=== PATIENT | female | born 1955 | race Caucasian/White ===

== ENCOUNTER → 2018-03-01 | Outpatient (CLI) | payer OTHER ==
--- NOTE | 2018-03-01 11:16 | RAD ---
DATE: 03/01/2018 EXAM: DIGITAL SCREEN BILAT W/CAD HISTORY: Routine screening COMPARISON: 02/26/2017 This study was interpreted with the benefit of Computerized Aided Detection (CAD). Breast Density: SCATTERED The breast parenchyma shows scattered fibroglandular densities. Breast parenchyma level B. FINDINGS: No new or enlarging breast densities are seen. Minimal benign type calcification is present. No suspicious microcalcifications have developed. IMPRESSION: Stable mammograms without evidence of malignancy. BI-RADS CATEGORY: 2 BENIGN FINDING(S) RECOMMENDED FOLLOW-UP: 12M 12 MONTH FOLLOW-UP PQRS compliance statement: Patient information was entered into a reminder system with a target due date for the next mammogram. Mammography is a sensitive method for finding small breast cancers, but it does not detect them all and is not a substitute for careful clinical examination. A negative mammogram does not negate a clinically suspicious finding and should not result in delay in biopsying a clinically suspicious abnormality. "Our facility is accredited by the [employer] Mammography Program."
== END | disposition home or self-care (01) ==
LOC: MAMMO 08:10
PROVIDERS: ATTEND Family Medicine
DX: Z12.31 Encounter for screening mammogram for malignant neoplasm of breast (principal)
CPT/HCPCS: 77067

== ENCOUNTER → 2018-11-25 | Outpatient (CLI) | payer OTHER ==
--- NOTE | 2018-11-26 14:01 | SLEEP ---
DATE OF STUDY: 11/25/2018 ATTENDING PHYSICIAN: Eduarda Vickers MD The patient is 63 years old who weighs 135 pounds with a BMI of 24. The patient's [place] score was 11. The patient underwent split night study performed at [facility]. During the night study, the patient spent 414 minutes in bed and slept for 321 minutes with a sleep efficiency of 77%. Sleep latency was 51 minutes with a REM latency of 161 minutes. Overall, sleep architecture showed increased stage 1 sleep, normal stage 2 sleep, increased slow wave and normal REM sleep. During the initial diagnostic portion of the study, the patient slept for 171 minutes. During that time, the patient had 17 obstructive apneas, no mixed or central apnea and 43 hypopneas. The patient's apnea-hypopnea index was 21 per hour, supine index 22 per hour and REM index of 53 per hour. EKG monitoring revealed normal sinus rhythm, average heart rate 84 beats per minute, no sustained arrhythmias were observed. No PLMs were observed. Nocturnal oximetry study during the diagnostic portion revealed a mean oxygen saturation 93% with lowest of 69%. An 8% of time oxygen saturation remained between 80% and 89%. The patient met the criteria for CPAP initiation. It was started at 7 cm water, but she could not tolerate lower pressure due to shortness of breath as a result it was increased to 9 cm water. The patient slept at that pressure of 116 minutes the patient's supine as well as REM sleep. The patient's AHI was reduced to 1 per hour and oxygen saturation remained above 91%. The patient used small size nasal pillows. IMPRESSION: 1. Moderate sleep apnea-hypopnea syndrome with worsening during rapid eye movements sleep. Total apnea-hypopnea index 21 per hour with a rapid eye movements apnea-hypopnea index of 53 per hour. 2. Nocturnal hypoxia secondary to obstructive sleep apnea, but resolved with continuous positive airway pressure. 3. No periodic limbs movements seen. RECOMMENDATIONS: 1. CPAP at 9 cm water completely eliminated the patient's sleep apnea, should be used on a nightly basis. 2. Follow up in 4-6 weeks to assess compliance with CPAP and to document clinical improvement. 3. Avoid ENAMEL SPRAYER depressants. 4. Caution regarding driving until symptoms of sleep apnea resolve with the use of CPAP. ROSAMARIA LARSON MD DR: BUCK/cee JOB#: [id number] / [id number] EDUARDA Snow MD
== END | disposition home or self-care (01) ==
LOC: SLPLAB 19:12
PROVIDERS: ATTEND Family Medicine
DX: G47.33 Obstructive sleep apnea (adult) (pediatric) (principal); G47.34 Idiopathic sleep related nonobstructive alveolar hypoventilation
CPT/HCPCS: 95810

== ENCOUNTER → 2018-12-27 | Day surgery (SDC) | payer OTHER ==
[~2018-12-27] MED LIST: CRESTOR40 MG PO; HYDROmorphone 2 MG/ML VIAL IV PRN; LEVO125T PO; LIDOCAINE 2% PF 5 ML VIAL. ONE; LISI1TAB23 PO; MORPHINE SULFATE 2 MG/ML VIAL. IV PRN; MULT-55 PO; ONDANSETRON PF 4 MG/2 ML VIAL. IV PRN; PROCHLORPERAZINE 10 MG/2 ML VIAL. IV PRN; PROPOFOL 20 ML IV ONE; RANI150T2 PO; fentaNYL PF VIAL 100 MCG/2 ML VIAL IV PRN
[2018-12-27] MEDS: IV RINGERS,LACTATED 1000ML 1,000 ML IV SCH ×2 (07:00→09:02)
[2018-12-27 10:44] VITALS: BP 101/55
--- NOTE | 2018-12-30 17:06 | PATHOLOGY ---
[facility] Accession Number: [id number] . 01 Material submitted: . sigmoid colon - SIGMOID POLYPECTOMY . 01 Clinical history: . Screen . 02 Diagnosis: Sigmoid colon polypectomy: - Tubular adenoma, with focal clusters of hemosiderin laden macrophages within lamina propria. (JPM:saman; 12/30/2018) QMS/12/30/2018 . 02 Comment: There is no high grade dysplasia or evidence of malignancy. . 02 Electronically signed: . Neeraj Rangel MD, Pathologist NPI- [id number] . 01 Gross description: . Received in formalin labeled "Camryn Salazar, sigmoid polypectomy," is a 0.6 x 0.5 x 0.5 cm polypoid piece of butcher soft tissue. The margin is inked and the tissue is sectioned perpendicular to the margin and submitted entirely in cassette A1. (TSD; 12/27/2018) TOB/TOB . 02 Pathologist provided ICD-10: D12.5 . 02 CPT . 108831 Specimen Comment: A courtesy copy of this report has been sent to Specimen Comment: [phone], . Specimen Comment: Report sent to / DR MEDRANO Performed at: 01 [facility] [address], [place], [place] [id number] MD Christiano Rios MD Phone: [phone] Performed at: 02 [facility] [address] [place], [place] [id number] MD Neeraj Rangel MD Phone: [phone]
== END | disposition home or self-care (01) ==
LOC: SURG 08:30
PROVIDERS: ATTEND Internal Medicine Gastroenterology
DX: Z12.11 Encounter for screening for malignant neoplasm of colon (principal); D12.5 Benign neoplasm of sigmoid colon; K64.0 First degree hemorrhoids; K21.9 Gastro-esophageal reflux disease without esophagitis; E78.00 Pure hypercholesterolemia, unspecified; F15.90 Other stimulant use, unspecified, uncomplicated; M19.90 Unspecified osteoarthritis, unspecified site; G47.33 Obstructive sleep apnea (adult) (pediatric); I10 Essential (primary) hypertension; Z91.040 Latex allergy status; Z98.890 Other specified postprocedural states; Z87.39 Personal history of other diseases of the musculoskeletal system and connective tissue; Z90.49 Acquired absence of other specified parts of digestive tract; Z98.51 Tubal ligation status; Z82.49 Family history of ischemic heart disease and other diseases of the circulatory system; Z79.899 Other long term (current) drug therapy
CPT/HCPCS: 45385; 88305; J2001; J2704; 45380

== ENCOUNTER → 2019-03-20 | Outpatient (CLI) | payer OTHER ==
[2018-12-27 10:44] VITALS: BP 101/55
[~2019-03-20] MED LIST changes: -HYDROmorphone 2 MG/ML VIAL IV PRN; -LIDOCAINE 2% PF 5 ML VIAL. ONE; -MORPHINE SULFATE 2 MG/ML VIAL. IV PRN; -ONDANSETRON PF 4 MG/2 ML VIAL. IV PRN; -PROCHLORPERAZINE 10 MG/2 ML VIAL. IV PRN; -PROPOFOL 20 ML IV ONE; -fentaNYL PF VIAL 100 MCG/2 ML VIAL IV PRN
--- NOTE | 2019-03-20 08:22 | RAD ---
DATE: 03/20/2019 EXAM: DIGITAL SCREEN BILAT W/CAD HISTORY: Routine screening COMPARISON: 02/26/2017, 03/01/2018, 02/07/2016 This study was interpreted with the benefit of Computerized Aided Detection (CAD). Breast Density: SCATTERED The breast parenchyma shows scattered fibroglandular densities. Breast parenchyma level B. FINDINGS: Parenchymal distribution is stable. No suspicious calcification, mass, or distortion. IMPRESSION: Stable BI-RADS CATEGORY: 1 NEGATIVE RECOMMENDED FOLLOW-UP: 12M 12 MONTH FOLLOW-UP PQRS compliance statement: Patient information was entered into a reminder system with a target due date for the next mammogram. Mammography is a sensitive method for finding small breast cancers, but it does not detect them all and is not a substitute for careful clinical examination. A negative mammogram does not negate a clinically suspicious finding and should not result in delay in biopsying a clinically suspicious abnormality. "Our facility is accredited by the [employer] Mammography Program."
== END | disposition home or self-care (01) ==
LOC: MAMMO 07:47
PROVIDERS: ATTEND Family Medicine
DX: Z12.31 Encounter for screening mammogram for malignant neoplasm of breast (principal)
CPT/HCPCS: 77067

== ENCOUNTER → 2020-03-29 | Outpatient (CLI) | payer OTHER ==
[2018-12-27 10:44] VITALS: BP 101/55
--- NOTE | 2020-03-29 17:28 | RAD ---
DATE: 03/29/2020 7:40 AM EXAM: DIGITAL SCREEN BILAT W/CAD HISTORY: Screening COMPARISON: 03/20/2019 Bilateral full field craniocaudal and mediolateral oblique images were obtained using digital technique. This study was interpreted with the benefit of Computerized Aided Detection (CAD). FINDINGS: Breast Density: SCATTERED The breast parenchyma shows scattered fibroglandular densities. Breast parenchyma level B No suspicious masses, microcalcifications or architectural distortion is present to suggest malignancy in either breast. The visualized axillae are unremarkable. IMPRESSION: No mammographic evidence of malignancy. BI-RADS CATEGORY: 1 NEGATIVE RECOMMENDED FOLLOW-UP: 12M 12 MONTH FOLLOW-UP Annual screening mammography is recommended, unless clinically indicated sooner based on symptoms or change in physical exam. PQRS compliance statement: Patient information was entered into a reminder system with a target due date for the next mammogram. Mammography is a sensitive method for finding small breast cancers, but it does not detect them all and is not a substitute for careful clinical examination. A negative mammogram does not negate a clinically suspicious finding and should not result in delay in biopsying a clinically suspicious abnormality. "Our facility is accredited by the [employer] Mammography [employer]."
== END ==
LOC: MAMMO 07:31
PROVIDERS: ATTEND Family Medicine
DX: Z12.31 Encounter for screening mammogram for malignant neoplasm of breast (principal)
CPT/HCPCS: 77067

== ENCOUNTER → 2021-04-18 | Outpatient (CLI) | payer OTHER ==
[2018-12-27 10:44] VITALS: BP 101/55
[~2021-04-18] MED LIST changes: -LISI1TAB23 PO; +LISI1TAB35 PO; -MULT-55 PO; +MULT-684 PO
--- NOTE | 2021-04-18 11:58 | RAD ---
DIGITAL BILATERAL SCREENING MAMMOGRAM (2-D) History: Routine screening Technique: 2-D digital CC and MLO views were obtained. CAD - computer aided detection was utilize d. Comparison: Mammograms from 03/29/2020 and 03/20/2019.. Findings: Breast Tissue Density B : There are scattered areas of fibroglandular density There are no suspicious masses, malignant appearing calcifications, or areas of architectural distort ion. Impression: No evidence of malignancy. Assessment: BI-RADS Category 1: Negative. Normal interval followup. The patient will receive a letter with the results in the mail. Patient information will be entered i nto the mammography reminder system with a target recall date for the next mammogram. A reminder nelson er will be generated. Electronically signed by: Neelam Verduzco MD (04/18/2021 11:55 AM) [id number]
== END ==
LOC: MAMMO 07:35
PROVIDERS: ATTEND Family Medicine
DX: Z12.31 Encounter for screening mammogram for malignant neoplasm of breast (principal)
CPT/HCPCS: 77067